=== PATIENT | female | born 1990 | race Asian ===

== ENCOUNTER 2017-06-02 10:20 | Day surgery (SDC) | payer OTHER ==
[~2017-06-02] VITALS: Ht 30.5 cm; Wt 0.5 kg
[2017-06-02 10:53] LABS: PLATELET COUNT 274 K/uL (152-353); POTASSIUM 3.2 mmol/L (3.6-5.2); SODIUM 140 mmol/L (136-145)
== END 2017-06-02 17:31 | disposition home or self-care (01) ==
LOC: OR 10:20
PROVIDERS: Student in an Organized Health Care Education/Training Program
PROC: 0FT44ZZ Resection of Gallbladder, Percutaneous Endoscopic Approach (ICD-10-PCS; principal; 2017-06-02)
DX: K80.10 Calculus of gallbladder with chronic cholecystitis without obstruction (principal)
CPT/HCPCS: 36415; 80053; 81025; 85027; J0132; J0330; J0690; J1100; J1170; J1885; J2001; J2250; J2405; J2704; J2710; J2765; J3010; J3490; S0028

== ENCOUNTER 2019-03-03 19:31 | Emergency (ER) | payer OTHER ==
[~2019-03-03] VITALS: Ht 160 cm; Wt 104.3 kg
[2019-03-03 19:59] VITALS: BP 158/88; TEMP 98.3
== END 2019-03-03 19:59 | disposition home or self-care (01) ==
LOC: ED 19:31
DX: S13.4XXA Sprain of ligaments of cervical spine, initial encounter (principal); V49.40XA Driver injured in collision with unspecified motor vehicles in traffic accident, initial encounter; Y92.89 Other specified places as the place of occurrence of the external cause
CPT/HCPCS: 99281

== ENCOUNTER 2019-05-05 11:46 | Emergency (ER) | payer OTHER ==
[~2019-05-05] VITALS: Ht 160 cm; Wt 104.3 kg
[2019-05-05 11:57] VITALS: TEMP 97.7
[2019-05-05 13:11] VITALS: BP 150/72
== END 2019-05-05 13:12 | disposition home or self-care (01) ==
LOC: ED 11:46
DX: J02.8 Acute pharyngitis due to other specified organisms (principal); J06.9 Acute upper respiratory infection, unspecified; F17.210 Nicotine dependence, cigarettes, uncomplicated
CPT/HCPCS: 87651; 99282

== ENCOUNTER 2022-08-07 15:08 | Outpatient (CLI) | payer OTHER | END 2022-08-07 19:01 | disposition home or self-care (01) | LOC: RAD 15:08 | PROVIDERS: ATTEND Nurse Practitioner Primary Care | DX: M54.59 Other low back pain (principal) ==

== ENCOUNTER 2023-09-06 14:49 | Emergency (ER) | payer OTHER ==
[~2023-09-06] VITALS: Ht 160 cm; Wt 104.3 kg
[2023-09-06 14:57] VITALS: BP 169/98; TEMP 98.5
[2023-09-06] MEDS ORDERED: CEFTRIAXONE SODIUM 1,000 MG INJ IM ONE (16:07)
[2023-09-06] MEDS ORDERED: DEXAMETHASONE SODIUM PHOSPHATE 4 MG INJ INJ ONE (16:08)
[2023-09-06] MEDS ORDERED: CEFTRIAXONE SODIUM 1,000 MG IV ONE (16:13)
[2023-09-06] MEDS ORDERED: DEXAMETHASONE SODIUM PHOSPHATE 4 MG INJ ONE (16:13)
== END 2023-09-06 16:55 | disposition home or self-care (01) ==
LOC: ED 14:49
DX: R51.9 Headache, unspecified (principal); J02.9 Acute pharyngitis, unspecified; R09.81 Nasal congestion; J01.90 Acute sinusitis, unspecified; J06.9 Acute upper respiratory infection, unspecified
CPT/HCPCS: 87502; 87635; 87651; 96372; 99283; J0696; J1100; U0003